=== PATIENT | male | born 1970 | race Caucasian/White ===

== ENCOUNTER 2020-06-17 09:09 | Inpatient (IN) | payer BC ==
[2020-06-17 10:06] LABS: Basophils # (A) 0.1 k/uL (0-0.2); Basophils % (A) 1 %; Eosinophils # (A) 0.1 k/uL (0-0.7); Eosinophils % (A) 1 %; HCT 49.4 % (39.0-53.0); HGB 17.3 gm/dL (13.0-17.5); Lymphocytes # (A) 1.4 k/uL (1.0-4.8); Lymphocytes % (A) 10 %; MCH 28.5 pg (25.0-35.0); MCHC 35.1 g/dL (31.0-37.0); MCV 81.2 fL (80.0-100.0); Mean Platelet Volume 7.5; Monocytes # (A) 0.7 k/uL (0-1.0); Monocytes % (A) 5 %; Neutrophils # (A) 10.6 k/uL (1.3-7.7); Neutrophils % (A) 81 %; Platelet Count 309 k/uL (150-450); RBC 6.08 m/uL (4.30-5.90); RDW 12.4 % (11.5-15.5)
--- NOTE | 2020-06-17 10:14 | XR ---
EXAMINATION TYPE: XR chest 1V portable DATE OF EXAM: 06/17/2020 COMPARISON: None. HISTORY: Shortness of breath. TECHNIQUE: Single frontal view of the chest is obtained. FINDINGS: Subtle groundglass opacity seen along the periphery of the lungs bilaterally. The findings likely represent multifocal pneumonia. IMPRESSION: Suspected multifocal pneumonia.
[2020-06-17 10:18] LABS: Calcium 8.2 mg/dL (8.4-10.2); Magnesium 2.1 mg/dL (1.6-2.3); Potassium 4.1 mmol/L (3.5-5.1); Total Bilirubin 1.1 mg/dL (0.2-1.3); Total Protein 6.2 g/dL (6.3-8.2)
[2020-06-17 10:21] LABS: INR 1.1 (<1.2); Partial Thromboplastin Time 23.2 sec (22.0-30.0); Prothrombin Time 11.1 sec (9.0-12.0)
--- NOTE | 2020-06-17 10:27 | ED ---
SOB HPI - General Chief Complaint: Shortness of Breath Stated Complaint: covid+/low oxygen Time Seen by Provider: 06/17/20 09:23 Source: patient Mode of arrival: ambulatory Limitations: no limitations - History of Present Illness Initial Comments: The patient is a 50-year-old male was previously healthy who presents emergency Department with reported shortness of breath. He has had symptoms since June 11. He went to [facility] on June 14 and was found to be Covid positive. Reports that they do have a pulse ox at home. His became concerned when his pulse ox was dropping into the 80s. Shortness of breath is exertional. He has also had diarrhea, fatigue and vomiting. He denies previous history of cardiac or pulmonary issues. No current fevers. Denies lower extremity swelling. No history of DVT or PE. No alleviating, Perceptin or modifying factors - Related Data Home Medications Medication Instructions Recorded Confirmed Cholecalciferol [Vitamin D3 (25 50 mcg PO DAILY 06/17/20 06/17/20 Mcg = 1000 Iu)] Zinc 50 mg PO DAILY 06/17/20 06/17/20 Previous Rx's Medication Instructions Recorded Ascorbic Acid [Vitamin C] 1,000 mg PO DAILY #30 tab 06/21/20 Dexamethasone [Decadron] 6 mg PO DAILY #5 tablet 06/21/20 Allergies Allergy/AdvReac Type Severity Reaction Status Date / Time No Known Allergies Allergy Verified 06/17/20 09:55 Review of Systems ROS Statement: Those systems with pertinent positive or pertinent negative responses have been documented in the HPI. ROS Other: All systems not noted in ROS Statement are negative. Past Medical History Past Medical History: No Reported History History of Any Multi-Drug Resistant Organisms: None Reported Past Surgical History: No Surgical Hx Reported Past Psychological History: No Psychological Hx Reported Smoking Status: Never smoker Past Alcohol Use History: None Reported Past Drug Use History: None Reported - Past Family History Father Additional Family Medical History / Comment(s): Father when pt was 11 yrs old-pt offers no further information. Mother Family Medical History: No Reported History Additional Family Medical History / Comment(s): Mother is healthy General Exam Limitations: no limitations General appearance: alert, in no apparent distress Head exam: Present: atraumatic, normocephalic, normal inspection Eye exam: Present: normal appearance, PERRL, EOMI. Absent: scleral icterus, conjunctival injection, periorbital swelling ENT exam: Present: normal exam, mucous membranes moist Neck exam: Present: normal inspection. Absent: tenderness, meningismus, lymphadenopathy Respiratory exam: Present: normal lung sounds bilaterally. Absent: respiratory distress, wheezes, rales, rhonchi, stridor Cardiovascular Exam: Present: normal rhythm, tachycardia, normal heart sounds. Absent: systolic murmur, diastolic murmur, rubs, gallop, clicks GI/Abdominal exam: Present: soft, normal bowel sounds. Absent: distended, tenderness, guarding, rebound, rigid Extremities exam: Present: normal inspection, full ROM, normal capillary refill. Absent: tenderness, pedal edema, joint swelling, calf tenderness Back exam: Present: normal inspection Neurological exam: Present: alert, oriented X3, CN II-XII intact Psychiatric exam: Present: normal affect, normal mood Skin exam: Present: warm, dry, intact, normal color. Absent: rash Course Vital Signs 06/17/20 06/17/20 06/17/20 09:16 14:00 14:41 Temperature 98.3 F 99.6 F Pulse Rate 112 H 98 Pulse Rate [ 104 H Left] Respiratory 18 18 18 Rate Blood Pressure 96/65 Blood Pressure 122/81 [Left Arm] O2 Sat by Pulse 94 L 91 L 93 L Oximetry 06/17/20 14:54 Temperature Pulse Rate Pulse Rate [ Left] Respiratory Rate Blood Pressure 106/71 Blood Pressure [Left Arm] O2 Sat by Pulse Oximetry Medical Decision Making - Medical Decision Making Upon arrival the patient was placed into room 8. A thorough history and physical exam was performed. IV is established. Patient is placed on contin uous pulse ox and cardiac monitoring. He is saturating 87-88% without oxygen. Chest x-ray was performed which demonstrates suspected multifocal pneumonia. Laboratory studies are reviewed and demonstrated an elevated d-dimer of 0.61. LDH 1047. Sodium low at 1:30. Because of elevated d-dimer the patient does go over for CT of his chest which fails to demonstrate a PE. Does demonstrate scattered infiltrates. Patient is ambulated and does drop down to 85%. Because the patient's hypoxia did recommend admission for which the patient did agree to. Spoke with Dr. Diehl who agreed to admit the patient. Will consult pulmonlogy. Patient agreed to the plan and is awaiting a bed on the floor - Lab Data Result diagrams: 06/19/20 06:51 06/19/20 06:51 Lab Results 06/17/20 06/17/20 06/17/20 Range/Units 09:53 09:53 09:53 WBC 13.0 H (3.8-10.6) k/uL RBC 6.08 H (4.30-5.90) m/uL Hgb 17.3 (13.0-17.5) gm/dL Hct 49.4 (39.0-53.0) % MCV 81.2 (80.0-100.0) fL MCH 28.5 (25.0-35.0) pg MCHC 35.1 (31.0-37.0) g/dL RDW 12.4 (11.5-15.5) % Plt Count 309 (150-450) k/uL MPV 7.5 Neutrophils % 81 % Lymphocytes % 10 % Monocytes % 5 % Eosinophils % 1 % Basophils % 1 % Neutrophils # 10.6 H (1.3-7.7) k/uL Lymphocytes # 1.4 (1.0-4.8) k/uL Monocytes # 0.7 (0-1.0) k/uL Eosinophils # 0.1 (0-0.7) k/uL Basophils # 0.1 (0-0.2) k/uL PT 11.1 (9.0-12.0) sec INR 1.1 (<1.2) APTT 23.2 (22.0-30.0) sec D-Dimer 0.61 H (<0.60) mg/L FEU Sodium 130 L (137-145) mmol/L Potassium 4.1 (3.5-5.1) mmol/L Chloride 97 L (98-107) mmol/L Carbon Dioxide 24 (22-30) mmol/L Anion Gap 9 mmol/L BUN 22 H (9-20) mg/dL Creatinine 1.19 (0.66-1.25) mg/dL Est GFR (CKD-EPI)AfAm 82 (>60 ml/min/1.73 sqM) Est GFR (CKD-EPI)NonAf 71 (>60 ml/min/1.73 sqM) Glucose 178 H (74-99) mg/dL Plasma Lactic Acid [place] (0.7-2.0) mmol/L Calcium 8.2 L (8.4-10.2) mg/dL Magnesium 2.1 (1.6-2.3) mg/dL Total Bilirubin 1.1 (0.2-1.3) mg/dL AST 35 (17-59) U/L ALT 23 (4-49) U/L Alkaline Phosphatase 66 (38-126) U/L Lactate Dehydrogenase 1047 H (313-618) U/L Total Protein 6.2 L (6.3-8.2) g/dL Albumin 3.0 L (3.5-5.0) g/dL 06/17/20 Range/Units 09:53 WBC (3.8-10.6) k/uL RBC (4.30-5.90) m/uL Hgb (13.0-17.5) gm/dL Hct (39.0-53.0) % MCV (80.0-100.0) fL MCH (25.0-35.0) pg MCHC (31.0-37.0) g/dL RDW (11.5-15.5) % Plt Count (150-450) k/uL MPV Neutrophils % % Lymphocytes % % Monocytes % % Eosinophils % % Basophils % % Neutrophils # (1.3-7.7) k/uL Lymphocytes # (1.0-4.8) k/uL Monocytes # (0-1.0) k/uL Eosinophils # (0-0.7) k/uL Basophils # (0-0.2) k/uL PT (9.0-12.0) sec INR (<1.2) APTT (22.0-30.0) sec D-Dimer (<0.60) mg/L FEU Sodium (137-145) mmol/L Potassium (3.5-5.1) mmol/L Chloride (98-107) mmol/L Carbon Dioxide (22-30) mmol/L Anion Gap mmol/L BUN (9-20) mg/dL Creatinine (0.66-1.25) mg/dL Est GFR (CKD-EPI)AfAm (>60 ml/min/1.73 sqM) Est GFR (CKD-EPI)NonAf (>60 ml/min/1.73 sqM) Glucose (74-99) mg/dL Plasma Lactic Acid [place] 1.5 (0.7-2.0) mmol/L Calcium (8.4-10.2) mg/dL Magnesium (1.6-2.3) mg/dL Total Bilirubin (0.2-1.3) mg/dL AST (17-59) U/L ALT (4-49) U/L Alkaline Phosphatase (38-126) U/L Lactate Dehydrogenase (313-618) U/L Total Protein (6.3-8.2) g/dL Albumin (3.5-5.0) g/dL - EKG Data EKG Comments: EKG demonstrates sinus tachycardia with ventricular rate of 116. RI interval 146. QRS 106. QTC of 478. No acute ST segment elevations. Disposition Clinical Impression: Hypoxia, COVID-19 Disposition: ADMITTED IP TO THIS HOSP Condition: Stable Is patient prescribed a controlled substance at d/c from ED?: No Decision to Admit Reason: Admit from EC Decision Date: 06/17/20 Decision Time: 12:32
--- NOTE | 2020-06-17 11:25 | CT ---
EXAMINATION TYPE: CT chest angio for PE DATE OF EXAM: 06/17/2020 COMPARISON: None HISTORY: elevated d-dimer, tachycardia, covid positive CT DLP: 731.5 mGycm CONTRAST: CT chest with contrast and 3D reconstruction with MIP imaging is performed with IV Contrast, patient injected with 100 mL of Isovue 370. Contrast-enhanced CT of the chest was performed through the course of the pulmonary arteries with allen g and mediastinal window settings submitted. 3D reconstruction with MIP imaging was also performed. PULMONARY ARTERIES: The pulmonary arteries and their major tributaries are patent. I do not see shy dence for sizable filling defect to suggest pulmonary embolic process. LUNGS: Scattered infiltrates throughout both lung bolton compatible with multifocal pneumonia. No shy dence for atelectasis. No pulmonary nodule or mass is detected. No pleural effusion. MEDIASTINUM: Thoracic aorta is of normal caliber,however, evaluation is limited given timing of the contrast bolus. If there is concern for thoracic aortic pathology consider PEGGY. Correlate clinicall y . The heart is not enlarged. No evidence for mediastinal mass. No mediastinal lymph nodes greater than 1cm. HILAR STRUCTURES: No evidence for mass. No hilar lymph nodes greater than 1 cm. UPPER ABDOMEN: No significant abnormality is seen. IMPRESSION: 1. No evidence for Pulmonary embolism at this time. 2.Scattered infiltrates throughout both lung bolton compatible with multifocal pneumonia.
[2020-06-17] MEDS ORDERED: NALOXONE 0.4 MG/ML 1 ML VIAL IV PRN (12:33)
[2020-06-17] MEDS: DEXAMETHASONE SOD PHOSPHATE 10 MG/ML 1 ML VIAL IV SCH (13:10)
--- NOTE | 2020-06-17 14:35 | P.HPIM ---
History of Present Illness H&P Date: 06/17/20 Chief Complaint: Low oxygen level This is a 50-year-old male with no significant past medical history that presented to the emergency room with low oxygen breathing at home. Patient said that last Herb he was having flulike symptoms and what he described as a stomach flu and went and got tested at the local [facility] for COVID-19. His test results came back positive and patient was taking vitamin C and vitamin D at home. He was feeling fairly well. He denies any shortness of breath. He denies any GI symptoms. He said that today he checked his oxygen at home and he was hovering around 86-88%. He was concerned and his urged him to go to the emergency room. In the emergency room, patient was evaluated and a chest x- ray showed multifocal infiltrates. D-dimer was elevated but CT angiogram was negative for PE. O2 sat at rest was around 88%. Patient was seen and evaluated by me in the ER. He denies any shortness of breath at this time. He will be admitted to the hospital for further evaluation and management Review of Systems Review of system: 14 points review of systems were obtained and were negative except to what were mentioned in the HPI. Past Medical History Past Medical History: No Reported History Additional Past Medical History / Comment(s): Pt tested covid + at [facility] on 06/14/20. History of Any Multi-Drug Resistant Organisms: None Reported Past Surgical History: No Surgical Hx Reported Past Anesthesia/Blood Transfusion Reactions: Unable to Obtain Additional Past Anesthesia/Blood Transfusion Reaction / Comment(s): Pt has never had surgery. Smoking Status: Never smoker - Past Family History Father Additional Family Medical History / Comment(s): Father when pt was 11 yrs old-pt offers no further information. Mother Family Medical History: No Reported History Additional Family Medical History / Comment(s): Mother is healthy Medications and Allergies Home Medications Medication Instructions Recorded Confirmed Type Cholecalciferol [Vitamin D3 (25 50 mcg PO DAILY 06/17/20 06/17/20 History Mcg = 1000 Iu)] Zinc 50 mg PO DAILY 06/17/20 06/17/20 History Allergies Allergy/AdvReac Type Severity Reaction Status Date / Time No Known Allergies Allergy Verified 06/17/20 09:55 Physical Exam Vitals: Vital Signs Temp Pulse Resp BP Pulse Ox 06/17/20 09:16 98.3 F 112 H 18 96/65 94 L Intake and Output 06/16/20 06/17/20 06/17/20 22:59 06:59 14:59 Other: Weight 114 kg General: The patient is awake and alert, in no distress Eye: there is normal conjunctiva bilaterally. Neck: The neck is supple, there is no JVD. Cardiovascular: Normal S1-S2, no S3-S4, no murmurs. Respiratory: Lungs are slightly diminished but clear to auscultation bilaterally Gastrointestinal: Abdomen is soft, nontender Musculoskeletal: There is no pedal edema. Neurological:. Speech is normal. Skin: Skin is warm and dry Results CBC & Chem 7: 06/17/20 09:53 06/17/20 09:53 Labs: Abnormal Lab Results - Last 24 Hours (Table) 06/17/20 06/17/20 06/17/20 Range/Units 09:53 09:53 09:53 WBC 13.0 H (3.8-10.6) k/uL RBC 6.08 H (4.30-5.90) m/uL Neutrophils # 10.6 H (1.3-7.7) k/uL D-Dimer 0.61 H (<0.60) mg/L FEU Sodium 130 L (137-145) mmol/L Chloride 97 L (98-107) mmol/L BUN 22 H (9-20) mg/dL Glucose 178 H (74-99) mg/dL Calcium 8.2 L (8.4-10.2) mg/dL Lactate Dehydrogenase 1047 H (313-618) U/L Total Protein 6.2 L (6.3-8.2) g/dL Albumin 3.0 L (3.5-5.0) g/dL Thrombosis Risk Factor Assmnt - Choose All That Apply Any of the Below Risk Factors Present?: Yes Each Factor Represents 1 point: Age 41-60 years, Obesity (BMI >25) Other Risk Factors: No Other congenital or acquired thrombophilia - If yes, enter type in comment: No Thrombosis Risk Factor Assessment Total Risk Factor Score: 2 Thrombosis Risk Factor Assessment Level: Low Risk Assessment and Plan Assessment: This is a 50-year-old male with no significant past medical history that presented to the emergency room with low oxygen at home. He was recently diagnosed with COVID-19 at the local [facility] few days ago prior to his presentation. Patient was evaluated in the ER and will be admitted to the hospital for furt her management of his medical problems noted below. 1. COVID-19 pneumonia 2. Acute hypoxic respiratory failure 3. Hypovolemic hyponatremia Patient was seen and evaluated by me in the ER. Started on Decadron 6 mg IV daily. Gentle IV fluid hydration with normal saline at 50 mL per hour. Contin ue vitamin C, vitamin D, zinc, and melatonin. Repeat lab work in the morning. Awaiting pulmonology evaluation to assess if the patient is candidate for Rem
[2020-06-17] MEDS: SODIUM CHLORIDE 0.9% 1,000 ML IV SCH (14:49)
[2020-06-17] MEDS: ALBUTEROL HFA INHALER INHALATION SCH ×2 (15:17→20:02)
[2020-06-17] MEDS ORDERED: REMDESIVIR 200 MG in SODIUM CHLORIDE 0.9% 250 ML IVPB ONE (16:00)
--- NOTE | 2020-06-17 16:02 | P.CNPUL ---
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 Patient started with symptoms of COVID-19 on 06/11/2020. Initiall y his symptoms started with "stomach-flu like symptoms". He denied any cough, denied any shortness of breath. His purchased a pulse ox, and she noted that his O2 saturations were in the high 80's, and she insisted the patient come to the emergency room for evaluation, patient did test positive COVID-19 at the [facility] on June 14. Patient does report exertional shortness of breath, fatigue, vomiting and diarrhea. Past medical history is noncontributory, he is a lifetime nonsmoker. Chest x-ray showed subtle groundglass opacities along the periphery of the lungs bilaterally. CBC showed elevated white count of 13, hemoglobin was 17.3, neutrophil count was 10.6, d-dimer was 0.61, sodium was 130, potassium is 4.1, chloride was 97, B1 is 22 creatinine is 1.19, LFTs are within normal limits, LDH was 1047. Patient was started on Decadron, vitamins, he was placed on Lovenox at 40 mg daily. Initially patient did not require oxygen in the emergency department, however during our evaluation patient was placed on 3 L of oxygen and his pulse ox is 90-91%, he does have a low-grade fever with a temp of 99.6F, he is breathing fairly comfortably. CTA chest showed no evidence of pulmonary embolism, he did not scattered pulmonary infiltrates. EKG showed sinus tachycardia rate of 104. Review of Systems All systems: negative Constitutional: Denies chills, Denies fever Eyes: denies blurred vision, denies pain Ears, nose, mouth and throat: Denies headache, Denies sore throat Cardiovascular: Denies chest pain, Denies shortness of breath Respiratory: Reports dyspnea, Denies cough Gastrointestinal: Reports diarrhea, Reports vomiting, Denies abdominal pain, Denies nausea Musculoskeletal: Denies myalgias Integumentary: Denies pruritus, Denies rash Neurological: Denies numbness, Denies weakness Psychiatric: Denies anxiety, Denies depression Endocrine: Denies fatigue, Denies weight change Past Medical History Past Medical History: No Reported History Additional Past Medical History / Comment(s): Pt tested covid + at [facility] on 06/14/20. History of Any Multi-Drug Resistant Organisms: None Reported Past Surgical History: No Surgical Hx Reported Past Anesthesia/Blood Transfusion Reactions: Unable to Obtain Additional Past Anesthesia/Blood Transfusion Reaction / Comment(s): Pt has never had surgery. Past Psychological History: No Psychological Hx Reported Smoking Status: Never smoker Past Alcohol Use History: None Reported Past Drug Use History: None Reported - Past Family History Father Additional Family Medical History / Comment(s): Father when pt was 11 yrs old-pt offers no further information. Mother Family Medical History: No Reported History Additional Family Medical History / Comment(s): Mother is healthy Medications and Allergies Home Medications Medication Instructions Recorded Confirmed Type Cholecalciferol [Vitamin D3 (25 50 mcg PO DAILY 06/17/20 06/17/20 History Mcg = 1000 Iu)] Zinc 50 mg PO DAILY 06/17/20 06/17/20 History Allergies Allergy/AdvReac Type Severity Reaction Status Date / Time No Known Allergies Allergy Verified 06/17/20 09:55 Physical Exam Vitals: Vital Signs Temp Pulse Pulse Resp BP BP Pulse Ox 06/17/20 14:54 106/71 06/17/20 14:41 98 18 93 L 06/17/20 14:00 99.6 F 104 H 18 122/81 91 L 06/17/20 09:16 98.3 F 112 H 18 96/65 94 L Intake and Output 06/17/20 06/17/20 06/17/20 06:59 14:59 22:59 Other: Weight 114 kg GENERAL EXAM: Alert, very pleasant, 50-year-old white male, on 2 L of oxygen pulse ox of 90-91% comfortable in no apparent distress. HEAD: Normocephalic/atraumatic. EYES: Normal reaction of pupils, equal size. Conjunctiva pink, sclera white. NOSE: Clear with pink turbinates. THROAT: No erythema or exudates. NECK: No masses, no JVD, no thyroid enlargement, no adenopathy. CHEST: No chest wall deformity. Symmetrical expansion. LUNGS: Equal air entry with bilateral crackles CVS: Regular rate and rhythm, normal S1 and S2, no gallops, no murmurs, no rubs ABDOMEN: Soft, nontender. No hepatosplenomegaly, normal bowel sounds, no guarding or rigidity. EXTREMITIES: No clubbing, no edema, no cyanosis, 2+ pulses and upper and lower extremities. MUSCULOSKELETAL: Muscle strength and tone normal. SPINE: No scoliosis or deformity SKIN: No rashes CENTRAL NERVOUS SYSTEM: Alert and oriented -3. No focal deficits, tone is normal in all 4 extremities. PSYCHIATRIC: Alert and oriented -3. Appropriate affect. Intact judgment and insight. Results - Laboratory Findings CBC and BMP: 06/17/20 09:53 06/17/20 09:53 PT/INR, D-dimer PT 11.1 sec (9.0-12.0) 06/17/20 09:53 INR 1.1 (<1.2) 06/17/20 09:53 D-Dimer 0.61 mg/L FEU (<0.60) H 06/17/20 09:53 Abnormal lab findings: Abnormal Labs 06/17/20 06/17/20 06/17/20 09:53 09:53 09:53 WBC 13.0 H RBC 6.08 H Neutrophils # 10.6 H D-Dimer 0.61 H Sodium 130 L Chloride 97 L BUN 22 H Glucose 178 H Calcium 8.2 L Lactate Dehydrogenase 1047 H Total Protein 6.2 L Albumin 3.0 L - Diagnostic Findings Chest x-ray: report reviewed, image reviewed CT scan - chest: report reviewed, image reviewed Assessment and Plan Plan: Assessment: #1. Acute hypoxic respiratory failure related to acute COVID-19 pneumonia. Patient presented within 6 days of symptom onset on 06/11/2020. Tested positive on an outpatient basis at the [facility] on 06/14/2020. Will be started on Remdesivir today on 06/17/2020 #2. Hyponatremia, likely hypovolemic #3. Increased inflammatory markers related to acute COVID-19 pneumonia Plan: We'll start the patient on Remdesivir Continue Decadron Continue Lovenox Increase IV fluids at 100 ML per hour We'll continue following inflammatory markers and a d-dimer We'll continue monitoring his oxygenation pattern I performed a history & physical examination of the patient and discussed their management with my nurse practitioner, Gabriella Holugin. I reviewed the nurse practitioner's note and agree with the documented findings and plan of care. Lung sounds are positive for diffuse wheezes throughout the lung bolton. The findings and the impression was discussed with the patient. I attest to the documentation by the nurse practitioner. Time with Patient: Greater than 30
[2020-06-17] MEDS: MELATONIN 5 MG TABLET PO SCH (21:25)
[2020-06-18 07:04] LABS: Glucose,Whole Blood 136 mg/dL (75-99)
[2020-06-18] MEDS: ALBUTEROL HFA INHALER INHALATION SCH ×4 (08:31→20:55)
[2020-06-18] MEDS: ASCORBIC ACID 500 MG TAB PO SCH (09:23)
[2020-06-18] MEDS: CHOLECALCIFEROL 25 MCG (1000 IU) TABLET PO SCH (09:23)
[2020-06-18] MEDS: DEXAMETHASONE SOD PHOSPHATE 10 MG/ML 1 ML VIAL IV SCH (09:23)
[2020-06-18] MEDS: SODIUM CHLORIDE 0.9% 1,000 ML IV SCH (09:24)
[2020-06-18] MEDS: ENOXAPARIN 40 MG/0.4 ML SYRINGE SQ SCH (09:24)
[2020-06-18 11:32] LABS: HCT 46.1 % (39.6-50.0); HGB 15.6 g/dL (13.0-17.0); MCH 27.9 pg (27.0-32.0); MCHC 33.8 g/dL (32.0-37.0); MCV 82.5 fL (80.0-97.0); Mean Platelet Volume 10.3 fL (9.5-12.2); Platelet Count 314 X 10*3/uL (140-440); RBC 5.59 X 10*6/uL (4.40-5.60); RDW 12.6 % (11.5-14.5); WBC 10.97 X 10*3/uL (4.50-10.00)
[2020-06-18 11:59] LABS: Basophils # (A) 0.04 X 10*3/uL (0.00-0.10); Basophils % (A) 0.4 %; Eosinophils # (A) 0 X 10*3/uL (0.04-0.35); Eosinophils % (A) 0 %; Lymphocytes # (A) 1.98 X 10*3/uL (0.90-5.00); Monocytes # (A) 1.08 X 10*3/uL (0.20-1.00); Monocytes % (A) 9.8 %; Neutrophils # (A) 7.79 X 10*3/uL (1.80-7.70); Neutrophils % (A) 71.1 %
[2020-06-18 12:59] LABS: African American GFR (CKD) 101.3 (60.0-200.0); Anion Gap 11.8 mmol/L (4.00-12.00); C Reactive Protein 8.3 mg/dL (0.0-0.8); Carbon Dioxide 26.2 mmol/L (21.6-31.8); Non-African American GFR(CKD) 87.4 (60.0-200.0)
--- NOTE | 2020-06-18 13:01 | P.PN ---
Subjective Progress Note Date: 06/18/20 Patient is doing well today. He denies any shortness of breath. He is currently on 2 L of oxygen. Objective - Vital Signs Vital signs: Vital Signs Temp 97.6 F 06/18/20 09:45 Pulse 95 06/18/20 09:45 Resp 19 06/18/20 09:45 BP 98/66 06/18/20 09:45 Pulse Ox 90 L 06/18/20 09:45 Intake & Output 06/17/20 06/18/20 06/18/20 18:59 06:59 18:59 Weight 114 kg Other: Voiding Method Toilet # Voids 1 # Bowel Movements 0 - Exam General: The patient is awake and alert, in no distress Eye: there is normal conjunctiva bilaterally. Neck: The neck is supple, there is no JVD. Cardiovascular: Normal S1-S2, no S3-S4, no murmurs. Respiratory: Lungs clear to auscultation bilaterally Gastrointestinal: Abdomen is soft, nontender Musculoskeletal: There is no pedal edema. Neurological:. Speech is normal. Skin: Skin is warm and dry - Labs CBC & Chem 7: 06/18/20 07:25 06/17/20 09:53 Labs: Abnormal Lab Results - Last 24 Hours (Table) 06/18/20 06/18/20 Range/Units 07:02 07:25 WBC 10.97 H (4.50-10.00) X 10*3/uL Immature Gran # 0.08 H (0.00-0.04) X 10*3/uL Neutrophils # 7.79 H (1.80-7.70) X 10*3/uL Monocytes # 1.08 H (0.20-1.00) X 10*3/uL Eosinophils # 0 L (0.04-0.35) X 10*3/uL POC Glucose (mg/dL) 136 H (75-99) mg/dL Assessment and Plan Assessment: This is a 50-year-old male with no significant past medical history that presented to the emergency room with low oxygen at home. He was recently diagnosed with COVID-19 at the local [facility] few days ago prior to his presentation. Patient was evaluated in the ER and will be admitted to the hospital for furth er management of his medical problems noted below. 1. COVID-19 pneumonia 2. Acute hypoxic respiratory failure 3. Hypovolemic hyponatremia 4. DVT prophylaxis with subcu Lovenox 5. Patient is full code Patient was seen and evaluated by pulmonology. Started on Remdesivir day #2. Decadron 6 mg daily day #2. Continue vitamin C, vitamin D, zinc, and melatonin. Repeat lab work in the morning. Discontinue IV fluid
--- NOTE | 2020-06-18 14:01 | P.PN ---
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 Patient started with symptoms of COVID-19 on 06/11/2020. I nitially his symptoms started with "stomach-flu like symptoms". He denied any cough, denied any shortness of breath. His purchased a pulse ox, and she noted that his O2 saturations were in the high 80's, and she insisted the patient come to the emergency room for evaluation, patient did test positive COVID-19 at the [facility] on June 14. Patient does report exertional shortness of breath, fatigue, vomiting and diarrhea. Past medical history is noncontributory, he is a lifetime nonsmoker. Chest x-ray showed subtle groundglass opacities along the periphery of the lungs bilaterally. CBC showed elevated white count of 13, hemoglobin was 17.3, neutrophil count was 10.6, d- dimer was 0.61, sodium was 130, potassium is 4.1, chloride was 97, B1 is 22 creatinine is 1.19, LFTs are within normal limits, LDH was 1047. Patient was started on Decadron, vitamins, he was placed on Lovenox at 40 mg daily. Initially patient did not require oxygen in the emergency department, however during our evaluation patient was placed on 3 L of oxygen and his pulse ox is 90-91%, he does have a low-grade fever with a temp of 99.6F, he is breathing fairly comfortably. CTA chest showed no evidence of pulmonary embolism, he did not scattered pulmonary infiltrates. EKG showed sinus tachycardia rate of 104. The patient is seen today 06/18/2020 in follow-up on the regular medical floor. He is currently sitting up in bed. Awake and alert in no acute distress. Feeling a bit better today compared to yesterday. He is currently maintaining O2 saturations at 90% on 2 L/m per nasal cannula. He is afebrile. Hemodynamically stable. White count 10.9. Hemoglobin 15.6. Lymphocytes 1.98. D-dimer 0.55. Sodium 136. Potassium 4.0. Creatinine 1.0. Glucose 139. LDH 333. C-reactive protein 8.3. He is continued on Lovenox, Decadron, vitamin supplements. This is day #2 of Remdesivir. Objective - Vital Signs Vital signs: Vital Signs Temp 98.4 F 06/18/20 13:42 Pulse 97 06/18/20 13:42 Resp 19 06/18/20 13:42 BP 101/68 06/18/20 13:42 Pulse Ox 90 L 06/18/20 13:42 Intake & Output 06/17/20 06/18/20 06/18/20 18:59 06:59 18:59 Weight 114 kg Other: Voiding Method Toilet # Voids 1 # Bowel Movements 0 - Exam GENERAL EXAM: Alert, very pleasant 50-year-old gentleman, on 2 L nasal cannula, comfortable in no apparent distress. HEAD: Normocephalic. EYES: Normal reaction of pupils, equal size. NOSE: Clear with pink turbinates. THROAT: No erythema or exudates. NECK: No masses, no JVD. CHEST: No chest wall deformity. LUNGS: Equal air entry with crackles in the bilateral posterior crackles. CVS: S1 and S2 normal with no audible murmur, regular rhythm. ABDOMEN: No hepatosplenomegaly, normal bowel sounds, no guarding or rigidity. SPINE: No scoliosis or deformity SKIN: No rashes CENTRAL NERVOUS SYSTEM: No focal deficits, tone is normal in all 4 extremities. EXTREMITIES: There is no peripheral edema. No clubbing, no cyanosis. Peripheral pulses are intact. - Labs CBC & Chem 7: 06/18/20 07:25 06/18/20 07:25 Labs: Abnormal Lab Results - Last 24 Hours (Table) 06/18/20 06/18/20 06/18/20 Range/Units 07:02 07:25 07:25 WBC 10.97 H (4.50-10.00) X 10*3/uL Immature Gran # 0.08 H (0.00-0.04) X 10*3/uL Neutrophils # 7.79 H (1.80-7.70) X 10*3/uL Monocytes # 1.08 H (0.20-1.00) X 10*3/uL Eosinophils # 0 L (0.04-0.35) X 10*3/uL BUN/Creatinine Ratio 26.00 H (12.00-20.00) Ratio Glucose 139 H (70-110) mg/dL POC Glucose (mg/dL) 136 H (75-99) mg/dL Calcium 8.0 L (8.7-10.3) mg/dL Lactate Dehydrogenase 333 H (120-246) U/L C-Reactive Protein 8.3 H (0.0-0.8) mg/dL Assessment and Plan Assessment: 1 Acute hypoxic respiratory failure related to acute COVID-19 pneumonia. Patient presented within 6 days of symptom onset on 06/11/2020. Tested positive on an outpatient basis at the [facility] on 06/14/2020. Started Remdesivir on 06/17/2020 2 Hyponatremia, likely hypovolemic, improved currently 136 3 Increased inflammatory markers related to acute COVID-19 pneumonia Plan: The patient was seen and evaluated by Dr. Kike Salas from the pulmonary standpoint Continue Decadron, Lovenox, vitamin supplements Continue Remdesivir, day #2 Titrate the FiO2 as tolerated Follow-up chest x-ray, inflammatory markers in a.m. We will continue to follow I, the cosigning physician, performed a history & physical examination of the patient. Lungs sounds crackles in bilateral bases. Maintaining good O2 saturations in the 90s on 2 L/m per nasal cannula. I discussed the assessment and plan of care with my nurse practitioner, Leyla Ann. I attest to the above note as dictated by her.
[2020-06-18 14:32] VITALS: BMI 35.0
[2020-06-18] MEDS: REMDESIVIR 100 MG in SODIUM CHLORIDE 0.9% 250 ML IVPB SCH (16:26)
[2020-06-18] MEDS: MELATONIN 5 MG TABLET PO SCH (21:31)
--- NOTE | 2020-06-19 07:22 | XR ---
EXAMINATION TYPE: XR chest 1V portable DATE OF EXAM: 06/19/2020 COMPARISON: 06/18/2019 HISTORY: Cough TECHNIQUE: Single frontal view of the chest is obtained. FINDINGS: Diffuse bilateral patchy infiltrates. Heart size normal. No pneumothorax. Biapical pleural thickening. Tiny pleural effusion. IMPRESSION: Diffuse bilateral patchy infiltrates correlate for multifocal pneumonia.
[2020-06-19] MEDS: ALBUTEROL HFA INHALER INHALATION SCH ×5 (07:40→20:38)
[2020-06-19] MEDS: CHOLECALCIFEROL 25 MCG (1000 IU) TABLET PO SCH (07:54)
[2020-06-19] MEDS: ENOXAPARIN 40 MG/0.4 ML SYRINGE SQ SCH (07:54)
[2020-06-19] MEDS: ASCORBIC ACID 500 MG TAB PO SCH (07:54)
[2020-06-19] MEDS: DEXAMETHASONE SOD PHOSPHATE 10 MG/ML 1 ML VIAL IV SCH (07:54)
--- NOTE | 2020-06-19 11:14 | P.PN ---
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 Patient started with symptoms of COVID-19 on 06/11/2020. I nitially his symptoms started with "stomach-flu like symptoms". He denied any cough, denied any shortness of breath. His purchased a pulse ox, and she noted that his O2 saturations were in the high 80's, and she insisted the patient come to the emergency room for evaluation, patient did test positive COVID-19 at the [facility] on June 14. Patient does report exertional shortness of breath, fatigue, vomiting and diarrhea. Past medical history is noncontributory, he is a lifetime nonsmoker. Chest x-ray showed subtle groundglass opacities along the periphery of the lungs bilaterally. CBC showed elevated white count of 13, hemoglobin was 17.3, neutrophil count was 10.6, d- dimer was 0.61, sodium was 130, potassium is 4.1, chloride was 97, B1 is 22 creatinine is 1.19, LFTs are within normal limits, LDH was 1047. Patient was started on Decadron, vitamins, he was placed on Lovenox at 40 mg daily. Initially patient did not require oxygen in the emergency department, however during our evaluation patient was placed on 3 L of oxygen and his pulse ox is 90-91%, he does have a low-grade fever with a temp of 99.6F, he is breathing fairly comfortably. CTA chest showed no evidence of pulmonary embolism, he did not scattered pulmonary infiltrates. EKG showed sinus tachycardia rate of 104. The patient is seen today 06/18/2020 in follow-up on the regular medical floor. He is currently sitting up in bed. Awake and alert in no acute distress. Feeling a bit better today compared to yesterday. He is currently maintaining O2 saturations at 90% on 2 L/m per nasal cannula. He is afebrile. Hemodynamically stable. White count 10.9. Hemoglobin 15.6. Lymphocytes 1.98. D-dimer 0.55. Sodium 136. Potassium 4.0. Creatinine 1.0. Glucose 139. LDH 333. C-reactive protein 8.3. He is continued on Lovenox, Decadron, vitamin supplements. This is day #2 of Remdesivir. The patient is seen today 06/19/2020 in follow-up on the regular medical floor. Awake and alert in no acute distress. Sitting up at bedside. Denies any worsening shortness of breath, cough or congestion. Maintaining O2 saturations at 90% on 3 L/m per nasal cannula. Afebrile. Hemodynamically stable. D-dimer 0.56. This day #3 of Remdesivir. Remains on Lovenox, Decadron, vitamin supplements. Objective - Vital Signs Vital signs: Vital Signs Temp 98.3 F 06/18/20 21:39 Pulse 74 06/18/20 21:39 Resp 18 06/18/20 21:39 BP 106/70 06/18/20 21:39 Pulse Ox 90 L 06/19/20 07:40 Intake & Output 06/18/20 06/19/20 06/19/20 18:59 06:59 18:59 Weight 114 kg Other: Voiding Method Toilet # Voids 3 1 - Exam GENERAL EXAM: Alert, very pleasant 50-year-old gentleman, on 3 L nasal cannula, comfortable in no apparent distress. HEAD: Normocephalic. EYES: Normal reaction of pupils, equal size. NOSE: Clear with pink turbinates. THROAT: No erythema or exudates. NECK: No masses, no JVD. CHEST: No chest wall deformity. LUNGS: Equal air entry with crackles in the bilateral posterior crackles. CVS: S1 and S2 normal with no audible murmur, regular rhythm. ABDOMEN: No hepatosplenomegaly, normal bowel sounds, no guarding or rigidity. SPINE: No scoliosis or deformity SKIN: No rashes CENTRAL NERVOUS SYSTEM: No focal deficits, tone is normal in all 4 extremities. EXTREMITIES: There is no peripheral edema. No clubbing, no cyanosis. Peripheral pulses are intact. - Labs CBC & Chem 7: 06/18/20 07:25 06/18/20 07:25 Labs: Abnormal Lab Results - Last 24 Hours (Table) 06/18/20 06/18/20 06/18/20 Range/Units 07:25 07:25 11:00 WBC 10.97 H (4.50-10.00) X 10*3/uL Immature Gran # 0.08 H (0.00-0.04) X 10*3/uL Neutrophils # 7.79 H (1.80-7.70) X 10*3/uL Monocytes # 1.08 H (0.20-1.00) X 10*3/uL Eosinophils # 0 L (0.04-0.35) X 10*3/uL BUN/Creatinine Ratio 26.00 H (12.00-20.00) Ratio Glucose 139 H (70-110) mg/dL Calcium 8.0 L (8.7-10.3) mg/dL Lactate Dehydrogenase 333 H (120-246) U/L C-Reactive Protein 8.3 H (0.0-0.8) mg/dL Coronavirus (PCR) Detected A (Not Detected) Assessment and Plan Assessment: 1 Acute hypoxic respiratory failure related to acute COVID-19 pneumonia. P atient presented within 6 days of symptom onset on 06/11/2020. Tested positive on an outpatient basis at the [facility] on 06/14/2020 and again here on 06/19/2019. Started Remdesivir on 06/17/2020 2 Hyponatremia, likely hypovolemic, improved currently 136 3 Increased inflammatory markers related to acute COVID-19 pneumonia Plan: The patient was seen and evaluated by Dr. Kike Salas from the pulmonary standpoint Continue Decadron, Lovenox, vitamin supplements Continue Remdesivir, day #3 Add incentive spirometer Increase his activity as tolerated Titrate the FiO2 as tolerated Follow-up inflammatory markers in a.m. We will continue to follow I, the cosigning physician, performed a history & physical examination of the patient. Lungs sounds crackles in bilateral bases. Maintaining good O2 saturations in the 90s on 3 L/m per nasal cannula. I discussed the assessment and plan of care with my nurse practitioner, Leyla Ann. I attest to the above note as dictated by her.
[2020-06-19 11:31] LABS: HCT 44.9 % (39.6-50.0); MCH 27.7 pg (27.0-32.0); MCHC 33.4 g/dL (32.0-37.0); MCV 82.8 fL (80.0-97.0); Mean Platelet Volume 9.9 fL (9.5-12.2); Platelet Count 382 X 10*3/uL (140-440); RBC 5.42 X 10*6/uL (4.40-5.60); RDW 12.6 % (11.5-14.5); WBC 10.33 X 10*3/uL (4.50-10.00)
[2020-06-19 11:45] LABS: BUN/Creat Ratio 21.11 Ratio (12.00-20.00); C Reactive Protein 4.1 mg/dL (0.0-0.8); Calcium 8.5 mg/dL (8.7-10.3); Non-African American GFR(CKD) 99.2 (60.0-200.0)
[2020-06-19 12:13] LABS: Basophils # (A) 0.03 X 10*3/uL (0.00-0.10); Basophils % (A) 0.3 %; Eosinophils # (A) 0.01 X 10*3/uL (0.04-0.35); Eosinophils % (A) 0.1 %; Lymphocytes # (A) 1.84 X 10*3/uL (0.90-5.00); Lymphocytes % (A) 17.8 %; Monocytes # (A) 0.88 X 10*3/uL (0.20-1.00); Monocytes % (A) 8.5 %; Neutrophils # (A) 7.48 X 10*3/uL (1.80-7.70); Neutrophils % (A) 72.4 %
--- NOTE | 2020-06-19 12:19 | P.PN ---
Subjective Progress Note Date: 06/19/20 Patient is doing well today. He denies any shortness of breath. He is currently on 2 L of oxygen. Objective - Vital Signs Vital signs: Vital Signs Temp 98.3 F 06/18/20 21:39 Pulse 74 06/18/20 21:39 Resp 18 06/18/20 21:39 BP 106/70 06/18/20 21:39 Pulse Ox 90 L 06/19/20 07:40 Intake & Output 06/18/20 06/19/20 06/19/20 18:59 06:59 18:59 Weight 114 kg Other: Voiding Method Toilet # Voids 3 1 - Exam General: The patient is awake and alert, in no distress Eye: there is normal conjunctiva bilaterally. Neck: The neck is supple, there is no JVD. Cardiovascular: Normal S1-S2, no S3-S4, no murmurs. Respiratory: Lungs clear to auscultation bilaterally Gastrointestinal: Abdomen is soft, nontender Musculoskeletal: There is no pedal edema. Neurological:. Speech is normal. Skin: Skin is warm and dry - Labs CBC & Chem 7: 06/19/20 06:51 06/19/20 06:51 Labs: Abnormal Lab Results - Last 24 Hours (Table) 06/18/20 06/18/20 06/19/20 Range/Units 07:25 11:00 06:51 WBC 10.33 H (4.50-10.00) X 10*3/uL Immature Gran # 0.09 H (0.00-0.04) X 10*3/uL Eosinophils # 0.01 L (0.04-0.35) X 10*3/uL Carbon Dioxide (21.6-31.8) mmol/L BUN/Creatinine Ratio 26.00 H (12.00-20.00) Ratio Glucose 139 H (70-110) mg/dL Calcium 8.0 L (8.7-10.3) mg/dL Lactate Dehydrogenase 333 H (120-246) U/L C-Reactive Protein 8.3 H (0.0-0.8) mg/dL Coronavirus (PCR) Detected A (Not Detected) 06/19/20 Range/Units 06:51 WBC (4.50-10.00) X 10*3/uL Immature Gran # (0.00-0.04) X 10*3/uL Eosinophils # (0.04-0.35) X 10*3/uL Carbon Dioxide 33.0 H (21.6-31.8) mmol/L BUN/Creatinine Ratio 21.11 H (12.00-20.00) Ratio Glucose 145 H (70-110) mg/dL Calcium 8.5 L (8.7-10.3) mg/dL Lactate Dehydrogenase 331 H (120-246) U/L C-Reactive Protein 4.1 H (0.0-0.8) mg/dL Coronavirus (PCR) (Not Detected) Assessment and Plan Assessment: This is a 50-year-old male with no significant past medical history that pres ented to the emergency room with low oxygen at home. He was recently diagnosed with COVID-19 at the local [facility] few days ago prior to his presentation. Patient was evaluated in the ER and will be admitted to the hospital for further management of his medical problems noted below. 1. COVID-19 pneumonia 2. Acute hypoxic respiratory failure 3. Hypovolemic hyponatremia 4. DVT prophylaxis with subcu Lovenox 5. Patient is full code Patient was seen and evaluated by pulmonology. Started on Remdesivir day #3. Decadron 6 mg daily day #3. Continue vitamin C, vitamin D, zinc, and melatonin.
[2020-06-19] MEDS: REMDESIVIR 100 MG in SODIUM CHLORIDE 0.9% 250 ML IVPB SCH (16:04)
[2020-06-19] MEDS: MELATONIN 5 MG TABLET PO SCH (22:09)
[2020-06-20] MEDS: ALBUTEROL HFA INHALER INHALATION SCH ×4 (08:01→20:58)
[2020-06-20] MEDS: CHOLECALCIFEROL 25 MCG (1000 IU) TABLET PO SCH (08:23)
[2020-06-20] MEDS: ASCORBIC ACID 500 MG TAB PO SCH (08:23)
[2020-06-20] MEDS: DEXAMETHASONE SOD PHOSPHATE 10 MG/ML 1 ML VIAL IV SCH (08:23)
[2020-06-20] MEDS: ENOXAPARIN 40 MG/0.4 ML SYRINGE SQ SCH (08:23)
[2020-06-20 11:42] LABS: C Reactive Protein 2.4 mg/dL (0.0-0.8)
--- NOTE | 2020-06-20 14:46 | P.PN ---
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 Patient started with symptoms of COVID-19 on 06/11/2020. I nitially his symptoms started with "stomach-flu like symptoms". He denied any cough, denied any shortness of breath. His purchased a pulse ox, and she noted that his O2 saturations were in the high 80's, and she insisted the patient come to the emergency room for evaluation, patient did test positive COVID-[address] [facility] on June 14. Patient does report exertional shortness of breath, fatigue, vomiting and diarrhea. Past medical history is noncontributory, he is a lifetime nonsmoker. Chest x-ray showed subtle groundglass opacities along the periphery of the lungs bilaterally. CBC showed elevated white count of 13, hemoglobin was 17.3, neutrophil count was 10.6, d- dimer was 0.61, sodium was 130, potassium is 4.1, chloride was 97, B1 is 22 creatinine is 1.19, LFTs are within normal limits, LDH was 1047. Patient was started on Decadron, vitamins, he was placed on Lovenox at 40 mg daily. Initially patient did not require oxygen in the emergency department, however during our evaluation patient was placed on 3 L of oxygen and his pulse ox is 90-91%, he does have a low-grade fever with a temp of 99.6F, he is breathing fairly comfortably. CTA chest showed no evidence of pulmonary embolism, he did not scattered pulmonary infiltrates. EKG showed sinus tachycardia rate of 104. The patient is seen today 06/18/2020 in follow-up on the regular medical floor. He is currently sitting up in bed. Awake and alert in no acute distress. Feeling a bit better today compared to yesterday. He is currently maintaining O2 saturations at 90% on 2 L/m per nasal cannula. He is afebrile. Hemodynamically stable. White count 10.9. Hemoglobin 15.6. Lymphocytes 1.98. D-dimer 0.55. Sodium 136. Potassium 4.0. Creatinine 1.0. Glucose 139. LDH 333. C-reactive protein 8.3. He is continued on Lovenox, Decadron, vitamin supplements. This is day #2 of Remdesivir. The patient is seen today 06/19/2020 in follow-up on the regular medical floor. Awake and alert in no acute distress. Sitting up at bedside. Denies any worsening shortness of breath, cough or congestion. Maintaining O2 saturations at 90% on 3 L/m per nasal cannula. Afebrile. Hemodynamically stable. D-dimer 0.56. This day #3 of Remdesivir. Remains on Lovenox, Decadron, vitamin supplements. The patient is seen today 06/20/2020 in follow-up on the regular medical floor. He sitting up in bed. Awake and alert in no acute distress. Maintaining good O2 saturations in the 90s on room air. No worsening shortness of breath, cough or congestion. Afebrile. Hemodynamically stable. D-dimer 0.51. LDH 343. C- reactive protein 2.4. This is day #4 of Remdesivir. Continued on Lovenox, Decadron, vitamin supplements. Objective - Vital Signs Vital signs: Vital Signs Temp 98.2 F 06/20/20 10:00 Pulse 108 H 06/20/20 10:00 Resp 16 06/20/20 10:00 BP 108/69 06/20/20 10:00 Pulse Ox 92 L 06/20/20 10:00 Intake & Output 06/19/20 06/20/20 06/20/20 18:59 06:59 18:59 Intake Total 790 240 Balance 790 240 Intake: Intake, IV Titration 250 Amount Remdesivir 100 mg In 250 Sodium Chloride 0.9% 250 ml @ 250 mls/hr IVPB DAILY@1600 [facility] Rx#: [id number] Oral 540 240 Other: Voiding Method Toilet Toilet # Voids 3 2 # Bowel Movements 1 - Exam GENERAL EXAM: Alert, very pleasant 50-year-old gentleman, on room air, comfortable in no apparent distress. HEAD: Normocephalic. EYES: Normal reaction of pupils, equal size. NOSE: Clear with pink turbinates. THROAT: No erythema or exudates. NECK: No masses, no JVD. CHEST: No chest wall deformity. LUNGS: Equal air entry with crackles in the bilateral posterior crackles. CVS: S1 and S2 normal with no audible murmur, regular rhythm. ABDOMEN: No hepatosplenomegaly, normal bowel sounds, no guarding or rigidity. SPINE: No scoliosis or deformity SKIN: No rashes CENTRAL NERVOUS SYSTEM: No focal deficits, tone is normal in all 4 extremities. EXTREMITIES: There is no peripheral edema. No clubbing, no cyanosis. Peripheral pulses are intact. - Labs CBC & Chem 7: 06/19/20 06:51 06/19/20 06:51 Labs: Abnormal Lab Results - Last 24 Hours (Table) 06/20/20 Range/Units 06:40 Lactate Dehydrogenase 343 H (120-246) U/L C-Reactive Protein 2.4 H (0.0-0.8) mg/dL Assessment and Plan Assessment: 1 Acute hypoxic respiratory failure related to acute COVID-19 pneumonia. Patient presented within 6 days of symptom onset on 06/11/2020. Tested positive on an outpatient basis at the [facility] on 06/14/2020 and again here on 06/19/2019. Started Remdesivir on 06/17/2020 2 Hyponatremia, likely hypovolemic, improved currently 140 3 Increased inflammatory markers related to acute COVID-19 pneumonia Plan: The patient was seen and evaluated by Dr. Stokes Continue Decadron, Lovenox, vitamin supplements Continue Remdesivir, day #4 Continue incentive spirometer Increase his activity as tolerated Probable discharge tomorrow after last dose of Remdesivir We will continue to follow I, the cosigning physician, performed a history & physical examination of the patient. Lungs sounds crackles in bilateral bases. Maintaining good O2 saturations in the 90s on room air. I discussed the assessment and plan of care with my nurse practitioner, Leyla Ann. I attest to the above note as dictated by her.
--- NOTE | 2020-06-20 15:14 | P.PN ---
Subjective Progress Note Date: 06/20/20 Patient is doing well today. He denies any shortness of breath. He is currently on 2 L of oxygen. Objective - Vital Signs Vital signs: Vital Signs Temp 98.7 F 06/20/20 14:00 Pulse 89 06/20/20 14:00 Resp 16 06/20/20 14:00 BP 129/77 06/20/20 14:00 Pulse Ox 92 L 06/20/20 14:00 Intake & Output 06/19/20 06/20/20 06/20/20 18:59 06:59 18:59 Intake Total 790 240 Balance 790 240 Intake: Intake, IV Titration 250 Amount Remdesivir 100 mg In 250 Sodium Chloride 0.9% 250 ml @ 250 mls/hr IVPB DAILY@1600 [facility] Rx#: [id number] Oral 540 240 Other: Voiding Method Toilet Toilet # Voids 3 2 # Bowel Movements 1 - Exam General: The patient is awake and alert, in no distress Eye: there is normal conjunctiva bilaterally. Neck: The neck is supple, there is no JVD. Cardiovascular: Normal S1-S2, no S3-S4, no murmurs. Respiratory: Lungs clear to auscultation bilaterally Gastrointestinal: Abdomen is soft, nontender Musculoskeletal: There is no pedal edema. Neurological:. Speech is normal. Skin: Skin is warm and dry - Labs CBC & Chem 7: 06/19/20 06:51 06/19/20 06:51 Labs: Abnormal Lab Results - Last 24 Hours (Table) 06/20/20 Range/Units 06:40 Lactate Dehydrogenase 343 H (120-246) U/L C-Reactive Protein 2.4 H (0.0-0.8) mg/dL Assessment and Plan Assessment: This is a 50-year-old male with no significant past medical history that presented to the emergency room with low oxygen at home. He was recently diagnosed with COVID-19 at the local [facility] few days ago prior to his presentation. Patient was evaluated in the ER and will be admitted to the hospital for further management of his medical problems noted below. 1. COVID-19 pneumonia 2. Acute hypoxic respiratory failure 3. Hypovolemic hyponatremia 4. DVT prophylaxis with subcu Lovenox 5. Patient is full code Patient was seen and evaluated by pulmonology. Started on Remdesivir day #4. Decadron 6 mg daily day #4. Continue vitamin C, vitamin D, zinc, and melatonin.
[2020-06-20] MEDS: REMDESIVIR 100 MG in SODIUM CHLORIDE 0.9% 250 ML IVPB SCH (16:16)
[2020-06-20] MEDS: MELATONIN 5 MG TABLET PO SCH (19:52)
[2020-06-21 02:34] VITALS: RESP 16
[2020-06-21] MEDS: ALBUTEROL HFA INHALER INHALATION SCH ×3 (08:29→15:06)
--- NOTE | 2020-06-21 09:20 | P.DS ---
Providers Date of admission: 06/17/20 12:33 Expected date of discharge: 06/21/20 Attending physician: Ludmila Whyte Consults: 06/17/20 12:35 Consult Physician Urgent Consulting Provider: Tj Stokes Consult Reason/Comments: acute hypoxic resp failure, acute covid infection Do you want consulting provider notified?: Yes Primary care physician: Stated None Hospital Course: This is a 50-year-old male with no significant past medical history that presented to the emergency room with low oxygen at home. He was recently diagnosed with COVID-19 at the local [facility] few days ago prior to his presentation. Patient was evaluated in the ER and will be admitted to the hospital for further management of his medical problems noted below. 1. COVID-19 pneumonia 2. Acute hypoxic respiratory failure 3. Hypovolemic hyponatremia 4. DVT prophylaxis with subcu Lovenox 5. Patient is full code Patient was seen and evaluated by pulmonology. Treated with Remdesivir for 5 days course. Decadron 6 mg daily day #5 will finish 5 more days as an outpatient. Continue vitamin C, vitamin D, zinc, and melatonin. Patient will be discharged home in a stable condition. For further details about this hospitalization please refer to the electronic chart. Time spent on discharge > 30 minutes including counseling and coordination of care General: The patient is awake and alert, in no distress Eye: there is normal conjunctiva bilaterally. Neck: The neck is supple, there is no JVD. Cardiovascular: Normal S1-S2, no S3-S4, no murmurs. Respiratory: Lungs clear to auscultation bilaterally Gastrointestinal: Abdomen is soft, nontender Musculoskeletal: There is no pedal edema. Neurological:. Speech is normal. Skin: Skin is warm and dry Patient Condition at Discharge: Stable Plan - Discharge Summary Discharge Rx Participant: No New Discharge Prescriptions: New Dexamethasone [Decadron] 6 mg PO DAILY #5 tablet Ascorbic Acid [Vitamin C] 1,000 mg PO DAILY #30 tab Continue Cholecalciferol [Vitamin D3 (25 Mcg = 1000 Iu)] 50 mcg PO DAILY Zinc 50 mg PO DAILY Discharge Medication List Cholecalciferol [Vitamin D3 (25 Mcg = 1000 Iu)] 50 mcg PO DAILY 06/17/20 [History] Zinc 50 mg PO DAILY 06/17/20 [History] Ascorbic Acid [Vitamin C] 1,000 mg PO DAILY #30 tab 06/21/20 [Rx] Dexamethasone [Decadron] 6 mg PO DAILY #5 tablet 06/21/20 [Rx] Follow up Appointment(s)/Referral(s): None,Stated [Primary Care Provider] - 1-2 days Activity/Diet/Wound Care/Special Instructions: Please go to [email or web address] to find a local primary care physician. Discharge Disposition: HOME SELF-CARE
[2020-06-21] MEDS: ASCORBIC ACID 500 MG TAB PO SCH (09:24)
[2020-06-21] MEDS: DEXAMETHASONE SOD PHOSPHATE 10 MG/ML 1 ML VIAL IV SCH (09:24)
[2020-06-21] MEDS: CHOLECALCIFEROL 25 MCG (1000 IU) TABLET PO SCH (09:24)
[2020-06-21] MEDS: ENOXAPARIN 40 MG/0.4 ML SYRINGE SQ SCH (09:25)
[2020-06-21] MEDS ORDERED: REMDESIVIR 100 MG in SODIUM CHLORIDE 0.9% 250 ML IVPB SCH ×2 (09:25→13:00)
[2020-06-21 10:35] VITALS: BP 119/84; PULSE 114; TEMP 98.5
--- NOTE | 2020-06-21 15:18 | P.PN ---
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 Patient started with symptoms of COVID-19 on 06/11/2020. I nitially his symptoms started with "stomach-flu like symptoms". He denied any cough, denied any shortness of breath. His purchased a pulse ox, and she noted that his O2 saturations were in the high 80's, and she insisted the patient come to the emergency room for evaluation, patient did test positive COVID-19 at the [facility] on June 14. Patient does report exertional shortness of breath, fatigue, vomiting and diarrhea. Past medical history is noncontributory, he is a lifetime nonsmoker. Chest x-ray showed subtle groundglass opacities along the periphery of the lungs bilaterally. CBC showed elevated white count of 13, hemoglobin was 17.3, neutrophil count was 10.6, d- dimer was 0.61, sodium was 130, potassium is 4.1, chloride was 97, B1 is 22 creatinine is 1.19, LFTs are within normal limits, LDH was 1047. Patient was started on Decadron, vitamins, he was placed on Lovenox at 40 mg daily. Initially patient did not require oxygen in the emergency department, however during our evaluation patient was placed on 3 L of oxygen and his pulse ox is 90-91%, he does have a low-grade fever with a temp of 99.6F, he is breathing fairly comfortably. CTA chest showed no evidence of pulmonary embolism, he did not scattered pulmonary infiltrates. EKG showed sinus tachycardia rate of 104. The patient is seen today 06/18/2020 in follow-up on the regular medical floor. He is currently sitting up in bed. Awake and alert in no acute distress. Feeling a bit better today compared to yesterday. He is currently maintaining O2 saturations at 90% on 2 L/m per nasal cannula. He is afebrile. Hemodynamically stable. White count 10.9. Hemoglobin 15.6. Lymphocytes 1.98. D-dimer 0.55. Sodium 136. Potassium 4.0. Creatinine 1.0. Glucose 139. LDH 333. C-reactive protein 8.3. He is continued on Lovenox, Decadron, vitamin supplements. This is day #2 of Remdesivir. The patient is seen today 06/19/2020 in follow-up on the regular medical floor. Awake and alert in no acute distress. Sitting up at bedside. Denies any worsening shortness of breath, cough or congestion. Maintaining O2 saturations at 90% on 3 L/m per nasal cannula. Afebrile. Hemodynamically stable. D-dimer 0.56. This day #3 of Remdesivir. Remains on Lovenox, Decadron, vitamin supplements. The patient is seen today 06/20/2020 in follow-up on the regular medical floor. He sitting up in bed. Awake and alert in no acute distress. Maintaining good O2 saturations in the 90s on room air. No worsening shortness of breath, cough or congestion. Afebrile. Hemodynamically stable. D-dimer 0.51. LDH 343. C- reactive protein 2.4. This is day #4 of Remdesivir. Continued on Lovenox, Decadron, vitamin supplements. On 06/21/2020 patient seen in follow-up on medical surgical floor, is currently off all supplemental oxygen, room air pulse ox is 94%, his been afebrile, hemodynamically has been stable, he is breathing quite comfortably, his last chest x-ray from 06/19/2020 showed diffuse bilateral patchy infiltrates consistent with multifocal pneumonia related to COVID-19. D-dimer was negative and has remained low since admission, most current value from yesterday was 0.51. Inflammatory markers are improved from admission. Patient will receive his last dose of Remdesivir today, he continues on IV Decadron 6 mg daily. He is on prophylactic dose Lovenox 40 mg daily Objective - Vital Signs Vital signs: Vital Signs Temp 98.5 F 06/21/20 10:00 Pulse 114 H 06/21/20 10:00 Resp 16 06/21/20 10:00 BP 119/84 06/21/20 10:00 Pulse Ox 94 L 06/21/20 10:00 Intake & Output 06/20/20 06/21/20 06/21/20 18:59 06:59 18:59 Intake Total 540 200 Balance 540 200 Intake: Oral 540 200 Other: Voiding Method Toilet Toilet Toilet # Voids 3 - Exam GENERAL EXAM: Alert, very pleasant, 50-year-old white male sitting up in a chair, on room air with a pulse ox of 94% comfortable in no apparent distress. HEAD: Normocephalic/atraumatic. EYES: Normal reaction of pupils, equal size. Conjunctiva pink, sclera white. NOSE: Clear with pink turbinates. THROAT: No erythema or exudates. NECK: No masses, no JVD, no thyroid enlargement, no adenopathy. CHEST: No chest wall deformity. Symmetrical expansion. LUNGS: Equal air entry with no crackles, wheeze, rhonchi or dullness. CVS: Regular rate and rhythm, normal S1 and S2, no gallops, no murmurs, no rubs ABDOMEN: Soft, nontender. No hepatosplenomegaly, normal bowel sounds, no guarding or rigidity. EXTREMITIES: No clubbing, no edema, no cyanosis, 2+ pulses and upper and lower extremities. MUSCULOSKELETAL: Muscle strength and tone normal. SPINE: No scoliosis or deformity SKIN: No rashes CENTRAL NERVOUS SYSTEM: Alert and oriented -3. No focal deficits, tone is normal in all 4 extremities. PSYCHIATRIC: Alert and oriented -3. Appropriate affect. Intact judgment and insight. - Labs CBC & Chem 7: 06/19/20 06:51 06/19/20 06:51 Assessment and Plan Plan: Assessment: #1. Acute hypoxic respiratory failure related to acute COVID-19 pneumonia. Patient presented within 6 days of symptom onset on 06/11/2020. Tested positive on an outpatient basis at the [facility] on 06/14/2020. Will be started on Remdesivir today on 06/17/2020 #2. Hyponatremia, likely hypovolemic, resolved #3. Increased inflammatory markers related to acute COVID-19 pneumonia Plan: Patient doing well Current vent room air He will receive his last dose of Remdesivir today Stable for discharge home afterwards He can complete a total of 10 day course of Decadron D-dimer continues to be low, inflammatory markers are improving He will need outpatient follow-up with Dr. Conner in the office in 2 weeks I performed a history & physical examination of the patient and discussed their management with my nurse practitioner, Gabriella Holguin. I reviewed the nurse practitioner's note and agree with the documented findings and plan of care. Lung sounds are positive for diffuse wheezes throughout the lung bol[place]. The findings and the impression was discussed with the patient. I attest to the documentation by the nurse practitioner. Time with Patient: Less than 30
== END 2020-06-21 14:35 | disposition home or self-care (01) | DRG 177 ==
LOC: EC 09:09 → 4SSUR 12:33
PROVIDERS: ADMIT Internal Medicine; ATTEND Internal Medicine
PROC: XW033E5 Introduction of Remdesivir Anti-infective into Peripheral Vein, Percutaneous Approach, New Technology Group 5 (ICD-10-PCS; principal; 2020-06-17)
DX: U07.1 COVID-19 (principal); J12.82 Pneumonia due to coronavirus disease 2019; J96.01 Acute respiratory failure with hypoxia; E87.1 Hypo-osmolality and hyponatremia; E86.1 Hypovolemia; E66.9 Obesity, unspecified; Z68.35 Body mass index [BMI] 35.0-35.9, adult
CPT/HCPCS: 36415; 71045; 71275; 80048; 80053; 83605; 83615; 83735; 85025; 85379; 85610; 85730; 86140; 93005; 94640; 94760; 99285

== ENCOUNTER 2020-10-02 06:39 | Emergency (ER) | payer BC ==
[2020-10-02] MEDS ORDERED: SODIUM CHLORIDE 0.9% 1,000 ML IV ONE (06:57)
[2020-10-02] MEDS ORDERED: diphenhydrAMINE 50 MG/ML 1 ML VIAL IVP STA (06:57)
[2020-10-02] MEDS ORDERED: methylPREDNISolone SOD SUCCI 125 MG/2 ML VIAL IV STA (06:57)
[2020-10-02] MEDS ORDERED: FAMOTIDINE 20 MG/2 ML VIAL IV STA (06:57)
--- NOTE | 2020-10-02 07:00 | ED ---
General Adult HPI - General Chief complaint: ENT Stated complaint: Facial Swelling Time Seen by Provider: 10/02/20 06:47 Source: patient, RN notes reviewed Mode of arrival: ambulatory Limitations: no limitations - History of Present Illness Initial comments: This a 50-year-old male presents emergency Department chief complaint of swelling, facial throat swelling. Patient states that he woke up around 3 AM felt like he had some abdominal discomfort felt some sensation in his throat. Patient went to the bathroom noticed significant swelling. Takes Benadryl but woke up in the morning with worsening symptoms. States his no shortness of breath he states is some fullness in his throat. He has NO KNOWN DRUG ALLERGIES unknown medications or any daily medications. 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 Patient states that the swelling does go away at nighttime with elevation he has some abdominal discomfort that has resolved denies any change in bowel habits, diarrhea constipation no dysuria no hematuria no urinary frequency. - Related Data Home Medications Medication Instructions Recorded Confirmed Cholecalciferol [Vitamin D3 (25 50 mcg PO DAILY 06/17/20 06/17/20 Mcg = 1000 Iu)] Zinc 50 mg PO DAILY 06/17/20 06/17/20 Previous Rx's Medication Instructions Recorded Ascorbic Acid [Vitamin C] 1,000 mg PO DAILY #30 tab 06/21/20 Dexamethasone [Decadron] 6 mg PO DAILY #5 tablet 06/21/20 Allergies Allergy/AdvReac Type Severity Reaction Status Date / Time No Known Allergies Allergy Verified 10/02/20 06:46 Review of Systems ROS Statement: Those systems with pertinent positive or pertinent negative responses have been documented in the HPI. ROS Other: All systems not noted in ROS Statement are negative. Past Medical History Past Medical History: No Reported History Additional Past Medical History / Comment(s): Pt tested covid + at [facility] on 06/14/20. History of Any Multi-Drug Resistant Organisms: None Reported Past Surgical History: No Surgical Hx Reported Past Anesthesia/Blood Transfusion Reactions: Unable to Obtain Additional Past Anesthesia/Blood Transfusion Reaction / Comment(s): Pt has never had surgery. Past Psychological History: No Psychological Hx Reported Smoking Status: Never smoker Past Alcohol Use History: None Reported Past Drug Use History: None Reported - Past Family History Father Additional Family Medical History / Comment(s): Father when pt was 11 yrs old-pt offers no further information. Mother Family Medical History: No Reported History Additional Family Medical History / Comment(s): Mother is healthy General Exam Limitations: no limitations General appearance: alert, in no apparent distress Head exam: Present: atraumatic, normocephalic, normal inspection Eye exam: Present: normal appearance, PERRL, EOMI. Absent: scleral icterus, conjunctival injection, periorbital swelling ENT exam: Present: normal oropharynx (Posterior pharynx is open, swallowing secretions well), mucous membranes moist, TM's normal bilaterally Neck exam: Absent: normal inspection (Swelling, no stridor), tenderness, meningismus, lymphadenopathy Respiratory exam: Present: normal lung sounds bilaterally. Absent: respiratory distress, wheezes, rales, rhonchi, stridor Cardiovascular Exam: Present: regular rate, normal rhythm, normal heart sounds. Absent: systolic murmur, diastolic murmur, rubs, gallop, clicks GI/Abdominal exam: Present: soft, normal bowel sounds. Absent: distended, tenderness, guarding, rebound, rigid Extremities exam: Present: pedal edema (Very minimal) Course Vital Signs 10/02/20 10/02/20 10/02/20 06:41 08:46 10:21 Temperature 98.1 F 98.6 F Pulse Rate 88 88 94 Respiratory 22 18 18 Rate Blood Pressure 152/103 135/96 158/87 O2 Sat by Pulse 96 96 100 Oximetry - Reevaluation(s) Reevaluation #1: 10/02/20 08:19 I did received a phone call from radiologist stating that there is retropharyngeal fluid collection. Patient case was discussed with Dr. Talavera recommends patient to be transferred to facility for retropharyngeal abscess p atient starting antibiotics. Cultures are drawn. Medical Decision Making - Medical Decision Making 50-year-old presented for sore throat. Patient has retropharyngeal abscess. Case discussed with Siria Kemp who accepts admission. Patient was given Solu-Medrol, antibiotics. Patient is currently protecting airway Patient be transferred for ENT evaluation. - Lab Data Result diagrams: 10/02/20 07:03 10/02/20 07:03 Lab Results 08/28/21 08/28/21 08/28/21 Range/Units 07:03 07:03 07:03 WBC 10.8 H (3.8-10.6) k/uL RBC 6.15 H (4.30-5.90) m/uL Hgb 18.0 H (13.0-17.5) gm/dL Hct 52.8 (39.0-53.0) % MCV 85.9 (80.0-100.0) fL MCH 29.3 (25.0-35.0) pg MCHC 34.1 (31.0-37.0) g/dL RDW 13.9 (11.5-15.5) % Plt Count 270 (150-450) k/uL MPV 6.8 Neutrophils % 56 % Lymphocytes % 30 % Monocytes % 5 % Eosinophils % 6 % Basophils % 1 % Neutrophils # 6.0 (1.3-7.7) k/uL Lymphocytes # 3.3 (1.0-4.8) k/uL Monocytes # 0.6 (0-1.0) k/uL Eosinophils # 0.6 (0-0.7) k/uL Basophils # 0.1 (0-0.2) k/uL Poikilocytosis Slight Sodium 134 L (137-145) mmol/L Potassium 4.2 (3.5-5.1) mmol/L Chloride 111 H (98-107) mmol/L Carbon Dioxide 22 (22-30) mmol/L Anion Gap 1 mmol/L BUN 17 (9-20) mg/dL Creatinine 0.97 (0.66-1.25) mg/dL Est GFR (CKD-EPI)AfAm >90 (>60 ml/min/1.73 sqM) Est GFR (CKD-EPI)NonAf >90 (>60 ml/min/1.73 sqM) Glucose 139 H (74-99) mg/dL Plasma Lactic Acid [place] (0.7-2.0) mmol/L Calcium 8.2 L (8.4-10.2) mg/dL Total Bilirubin 0.4 (0.2-1.3) mg/dL AST 32 (17-59) U/L ALT 17 (4-49) U/L Alkaline Phosphatase 85 (38-126) U/L Total Protein 4.8 L (6.3-8.2) g/dL Albumin 2.2 L (3.5-5.0) g/dL Amylase 58 (30-110) U/L Lipase 84 (23-300) U/L Urine Color Yellow Urine Appearance Cloudy (Clear) Urine pH 6.0 (5.0-8.0) Ur Specific [place] 1.034 (1.001-1.035) Urine Protein 3+ H (Negative) Urine Glucose (UA) 1+ H (Negative) Urine Ketones Negative (Negative) Urine Blood Moderate H (Negative) Urine Nitrite Negative (Negative) Urine Bilirubin Negative (Negative) Urine Urobilinogen <2.0 (<2.0) mg/dL Ur Leukocyte Esterase Negative (Negative) Urine RBC 2 (0-5) /hpf Urine WBC 5 (0-5) /hpf Ur Squamous Epith Cells <1 (0-4) /hpf Amorphous Sediment Rare H (None) /hpf Urine Bacteria Rare H (None) /hpf Hyaline Casts 143 H (0-2) /lpf Urine Mucus Many H (None) /hpf 10/02/20 Range/Units 07:03 WBC (3.8-10.6) k/uL RBC (4.30-5.90) m/uL Hgb (13.0-17.5) gm/dL Hct (39.0-53.0) % MCV (80.0-100.0) fL MCH (25.0-35.0) pg MCHC (31.0-37.0) g/dL RDW (11.5-15.5) % Plt Count (150-450) k/uL MPV Neutrophils % % Lymphocytes % % Monocytes % % Eosinophils % % Basophils % % Neutrophils # (1.3-7.7) k/uL Lymphocytes # (1.0-4.8) k/uL Monocytes # (0-1.0) k/uL Eosinophils # (0-0.7) k/uL Basophils # (0-0.2) k/uL Poikilocytosis Sodium (137-145) mmol/L Potassium (3.5-5.1) mmol/L Chloride (98-107) mmol/L Carbon Dioxide (22-30) mmol/L Anion Gap mmol/L BUN (9-20) mg/dL Creatinine (0.66-1.25) mg/dL Est GFR (CKD-EPI)AfAm (>60 ml/min/1.73 sqM) Est GFR (CKD-EPI)NonAf (>60 ml/min/1.73 sqM) Glucose (74-99) mg/dL Plasma Lactic Acid [place] 0.7 (0.7-2.0) mmol/L Calcium (8.4-10.2) mg/dL Total Bilirubin (0.2-1.3) mg/dL AST (17-59) U/L ALT (4-49) U/L Alkaline Phosphatase (38-126) U/L Total Protein (6.3-8.2) g/dL Albumin (3.5-5.0) g/dL Amylase (30-110) U/L Lipase (23-300) U/L Urine Color Urine Appearance (Clear) Urine pH (5.0-8.0) Ur Specific [place] (1.001-1.035) Urine Protein (Negative) Urine Glucose (UA) (Negative) Urine Ketones (Negative) Urine Blood (Negative) Urine Nitrite (Negative) Urine Bilirubin (Negative) Urine Urobilinogen (<2.0) mg/dL Ur Leukocyte Esterase (Negative) Urine RBC (0-5) /hpf Urine WBC (0-5) /hpf Ur Squamous Epith Cells (0-4) /hpf Amorphous Sediment (None) /hpf Urine Bacteria (None) /hpf Hyaline Casts (0-2) /lpf Urine Mucus (None) /hpf Disposition Clinical Impression: Retropharyngeal abscess Disposition: OTHER INSTITUTION NOT DEFINED Referrals: None,Stated [Primary Care Provider] - 1-2 days - Out of Hospital Transfer - Req. Specs Out of Hospital Transfer - Requested Specifics: Other Emergency Center (Retropharyngeal abscess)
[2020-10-02 07:10] LABS: Basophils # (A) 0.1 k/uL (0-0.2); Basophils % (A) 1 %; Eosinophils # (A) 0.6 k/uL (0-0.7); Eosinophils % (A) 6 %; HCT 52.8 % (39.0-53.0); Lymphocytes # (A) 3.3 k/uL (1.0-4.8); Lymphocytes % (A) 30 %; MCH 29.3 pg (25.0-35.0); MCHC 34.1 g/dL (31.0-37.0); MCV 85.9 fL (80.0-100.0); Mean Platelet Volume 6.8; Monocytes # (A) 0.6 k/uL (0-1.0); Monocytes % (A) 5 %; Neutrophils % (A) 56 %; Platelet Count 270 k/uL (150-450); Poikilocytosis Slight; RBC 6.15 m/uL (4.30-5.90); RDW 13.9 % (11.5-15.5); WBC 10.8 k/uL (3.8-10.6)
[2020-10-02 07:19] LABS: Amorphous Sediment,Urine Rare /hpf; Appearance,Urine Cloudy (Clear); Bacteria,Urine Rare /hpf; Bilirubin,Urine Negative (Negative); Blood,Urine Moderate (Negative); Color,Urine Yellow; Glucose,Urine (UA) 1+ (Negative); Hyaline Casts,Urine 143 /lpf (0-2); Ketones,Urine Negative (Negative); Leukocyte Esterase,Urine Negative (Negative); Mucus,Urine Many /hpf; Nitrite,Urine Negative (Negative); Protein,Urine 3+ (Negative); RBC,Urine 2 /hpf (0-5); Specific Gravity,Urine 1.034 (1.001-1.035); Squamous Epithelial Cell,Urine <1 /hpf (0-4); Urobilinogen,Urine <2.0 mg/dL (<2.0); WBC,Urine 5 /hpf (0-5)
[2020-10-02 07:30] LABS: ALT 17 U/L (4-49); African American GFR (CKD) >90 (>60 ml/min/1.73 sqM); Albumin 2.2 g/dL (3.5-5.0); Amylase 58 U/L (30-110); Anion Gap 1 mmol/L; Blood Urea Nitrogen 17 mg/dL (9-20); Calcium 8.2 mg/dL (8.4-10.2); Carbon Dioxide 22 mmol/L (22-30); Chloride 111 mmol/L (98-107); Glucose 139 mg/dL (74-99); Lipase 84 U/L (23-300); Non-African American GFR(CKD) >90 (>60 ml/min/1.73 sqM); Sodium 134 mmol/L (137-145); Total Bilirubin 0.4 mg/dL (0.2-1.3); Total Protein 4.8 g/dL (6.3-8.2)
[2020-10-02 07:45] LABS: AST 32 U/L (17-59); Alkaline Phosphatase 85 U/L (38-126); Potassium 4.2 mmol/L (3.5-5.1)
[2020-10-02] MEDS ORDERED: AMPICILLIN-SULBACTAM 3 GM in SODIUM CHLORIDE 0.9% 100 ML IVPB STA (08:13)
--- NOTE | 2020-10-02 08:14 | CT ---
EXAMINATION TYPE: CT soft tissue neck w con DATE OF EXAM: 10/02/2020 7:38 AM COMPARISON: None HISTORY: facial swelling, difficulty swallowing CT DLP: 662.4 mGycm Automated exposure control for dose reduction was used. CONTRAST: CT scan of the neck is performed following with IV Contrast, patient injected with 100 mL of Isovue 3 00. Axial images are obtained, coronal and sagittal reformatted images are reviewed. FINDINGS: There is fluid attenuation noted in the prevertebral soft tissues from approximately the le [place] of C1 anteriorly to C6-7, measurement is approximately 10 cm in cephalad to caudal dimension by 7 .7 cm in transverse dimension by 2.5 cm in anterior posterior dimension, there is posterior mass effe ct on the oral pharyngeal airway. Some mixed fluid and air attenuation is present. No definite enhanc ing wall identified Airway: Airway is patent despite the posterior mass effect. There is some patchy airspace disease not ed, groundglass opacities in the upper lobes. Parotid/submandibular glands: No gross abnormality seen. Carotid/Vascular Structures: Patent Osseous Structures: . Degenerative disc changes are noted incidentally in the visualized spine, there is reversal the normal lordosis. Other: Nonenlarged nodes present in the superior mediastinum. 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 Correlate for possible pneumonia, consider Covid 19 infection. Results relayed to Teodoro by phone at the time of interpretation.
[2020-10-02 08:56] VITALS: RESP 18; TEMP 98.6
[2020-10-02 11:06] VITALS: BP 131/100; PULSE 88
== END 2020-10-02 11:05 | disposition other institution (70) ==
LOC: EC 06:39
DX: J39.0 Retropharyngeal and parapharyngeal abscess (principal); Z79.52 Long term (current) use of systemic steroids
CPT/HCPCS: 96365; 96366 ×2; 96375 ×3; 96361; 99284; 36415; 80053; 82150; 83605; 83690; 85025; 81001; 87040; 70491; J1200; J2930; J0295; Q9967